=== PATIENT | male | born 1990 | race American Indian/Alaskan Native ===

== ENCOUNTER 2017-10-02 04:36 | Emergency (ER) | payer OTHER ==
[2017-10-02 04:55] VITALS: RESP 20
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
[2017-10-02 06:31] VITALS: BP 130/68; PULSE 100; TEMP 98
--- NOTE | 2017-10-02 08:04 | RAD ---
Right hand 5th digit three views History: Pain. Comparison: None available. Findings: Limited study secondary to patient noncompliance. Horizontally oriented fracture deformity through the base of the 5th proximal phalanx with minimal distraction at the fracture site. In addition, there is some questionable cortical irregularity at the base of the 5th metacarpal bone at its articulation with the carpal bones with some bony productive change and or cortical irregularity at that level. Correlation with bony CT may be helpful for further evaluation to exclude osseous injury at this level. Clinical correlation. Impression: Limited study secondary to patient noncompliance. Horizontally oriented fracture deformity through the base of the 5th proximal phalanx with minimal distraction at the fracture site. In addition, there is some questionable cortical irregularity at the base of the 5th metacarpal bone at its articulation with the carpal bones with some bony productive change and or cortical irregularity at that level. Correlation with bony CT may be helpful for further evaluation to exclude osseous injury at this level. Clinical correlation.
[2017-10-03 02:44] VITALS: O2SAT 99
== END 2017-10-02 07:10 | disposition home or self-care (01) ==
LOC: C.ER 04:36
DX: S62.316A Displaced fracture of base of fifth metacarpal bone, right hand, initial encounter for closed fracture (principal); Y09 Assault by unspecified means; M79.672 Pain in left foot; M79.671 Pain in right foot